=== PATIENT | male | born 1970 | race Caucasian/White ===

== ENCOUNTER 2016-07-06 08:54 | Emergency (ER) | payer OTHER ==
[2016-07-06] MEDS ORDERED: ASPIRIN PO STA (09:06)
--- NOTE | 2016-07-06 09:12 | EKG Report ---
Test Performed on : 07/06/2016 08:56:28 AM Test Reason : CHEST PAIN Blood Pressure : / mmHG Vent. Rate : 072 BPM Atrial Rate : 072 BPM P-R Int : 158 ms QRS Dur : 102 ms QT Int : 378 ms P-R-T Axes : 027 021 029 degrees QTc Int : 413 ms Normal sinus rhythm. Incomplete right bundle branch block Possible Anterior infarct , age undetermined Abnormal ECG No previous ECGs available Unconfirmed Result
[2016-07-06 09:28] LABS: MANUAL DIFF NEEDED? NO
[2016-07-06 09:37] LABS: BASO% 0.4 % (0.0-0.8); EOS# 0.28 X1000 (0.0-0.7); HEMATOCRIT 47.3 % (42.0-52.0); HEMOGLOBIN 15.7 g/dL (14.0-18.0); IMM GRAN# 0.02 X1000 (0.0-0.04); IMM GRAN% 0.2 % (0.0-0.5); LYMPH# 2.28 X1000 (1.2-3.4); LYMPH% 24.1 % (20.5-51.1); MCH 27.4 PG (27-31); MCHC 33.2 g/dL (33-37); MCV 82.4 FL (81-99); MONO% 7.4 % (1.7-9.3); MPV 9.1 FL (7.4-10.4); NEUT% 64.9 % (42.2-75.2); PLT 278 X1000 (130-400); RBC 5.74 XMIL (4.7-6.1)
[2016-07-06] MEDS ORDERED: LOPRESSOR IV ONE (09:42)
--- NOTE | 2016-07-06 09:49 | PROVIDER DOCUMENTATION ---
Addendum entered and electronically signed by Tenisha Herbert Scribe 07/06/16 13:02 : Departure - Departure Time of Disposition Order: 13:02 DIAGNOSIS: Elevated blood pressure reading, Atypical chest pain Disposition: HOME 01 Certified Medical Emergency: Emergent Condition: Stable Additional Instructions: Follow up with PCP and Cardiology JUNIOR for further management. Return to ER if your chest pain worsen. Prescriptions: Amlodipine Besylate [Norvasc] 5 mg PO DAILY #30 tablet Referrals: Abner Dixon MD [STAFF PHYSICIAN] - Lavell Rodriguez MD [Primary Care Provider] - Addendum entered and electronically signed by Tenisha Herbert Scribe 07/06/16 12:45 : Progress - PLAN OF CARE/RESULTS Progress/Plan/Lab Results: Laboratory Tests 07/06/16 07/06/16 07/06/16 09:17 09:17 09:17 WBC RBC Hgb Hct MCV MCH MCHC RDW Std Deviation Plt Count MPV Immature Gran % (Auto) Neut % (Auto) Lymph % (Auto) Glades % (Auto) Eos % (Auto) Baso % (Auto) Immature Gran # (Auto) Neut # (Auto) Lymph # (Auto) Glades # (Auto) Eos # (Auto) Baso # (Auto) PT INR APTT (Factor Assay) D-Dimer Sodium 137 Potassium 4.3 Chloride 100 Carbon Dioxide 25 Anion Gap 12 BUN 15 Creatinine 1.0 Estimated GFR/1.73 m2 > 60 BUN/Creatinine Ratio 15 Glucose 119 H Calculated Osmolality 276 Calcium 9.3 Magnesium 2.5 Total Bilirubin 0.30 AST 25 ALT 35 Alkaline Phosphatase 58 Creatine Kinase 193 Troponin T < 0.010 Tzd-Z-Stveuejomih Pept 27 Total Protein 7.4 Albumin 4.2 Globulin 3.0 Albumin/Globulin Ratio 1.0 Lipase 07/06/16 07/06/16 07/06/16 09:17 09:17 09:17 WBC 9.47 RBC 5.74 Hgb 15.7 Hct 47.3 MCV 82.4 MCH 27.4 MCHC 33.2 RDW Std Deviation 13.4 Plt Count 278 MPV 9.1 Immature Gran % (Auto) 0.2 Neut % (Auto) 64.9 Lymph % (Auto) 24.1 Glades % (Auto) 7.4 Eos % (Auto) 3.0 Baso % (Auto) 0.4 Immature Gran # (Auto) 0.02 Neut # (Auto) 6.15 Lymph # (Auto) 2.28 Glades # (Auto) 0.70 H Eos # (Auto) 0.28 Baso # (Auto) 0.04 PT 12.8 INR 0.93 APTT (Factor Assay) 30.3 D-Dimer < 0.22 L Sodium Potassium Chloride Carbon Dioxide Anion Gap BUN Creatinine Estimated GFR/1.73 m2 BUN/Creatinine Ratio Glucose Calculated Osmolality Calcium Magnesium Total Bilirubin AST ALT Alkaline Phosphatase Creatine Kinase Troponin T Xay-B-Ggglhcdglmq Pept Total Protein Albumin Globulin Albumin/Globulin Ratio Lipase 42 07/06/16 07/06/16 11:15 11:15 WBC RBC Hgb Hct MCV MCH MCHC RDW Std Deviation Plt Count MPV Immature Gran % (Auto) Neut % (Auto) Lymph % (Auto) Glades % (Auto) Eos % (Auto) Baso % (Auto) Immature Gran # (Auto) Neut # (Auto) Lymph # (Auto) Glades # (Auto) Eos # (Auto) Baso # (Auto) PT INR APTT (Factor Assay) D-Dimer Sodium Potassium Chloride Carbon Dioxide Anion Gap BUN Creatinine Estimated GFR/1.73 m2 BUN/Creatinine Ratio Glucose Calculated Osmolality Calcium Magnesium Total Bilirubin AST ALT Alkaline Phosphatase Creatine Kinase 174 Troponin T < 0.010 Nuw-R-Smllskagidt Pept Total Protein Albumin Globulin Albumin/Globulin Ratio Lipase Orders Category Date Time Status Cardiac Monitoring DIRECTED Care 07/06/16 09:07 Active Oxygen Therapy- ED Nursing DIRECTED Care 07/06/16 09:07 Active Saline Loc NOW Care 07/06/16 09:07 Active CHEST-2 VIEWS [RAD] Stat Exams 07/06/16 09:[address] THORAX W/CONTRAST [CT] Stat Exams 07/06/16 12:10 Taken US GB < RUQ (LIMITED) [US] Stat Exams 07/06/16 09:42 Completed CBC WITH ELECTRONIC DIFF [HEME] Stat Lab 07/06/16 09:17 Completed CK PROFILE [SP CHEM] Stat Lab 07/06/16 09:17 Completed CK PROFILE [SP CHEM] Stat Lab 07/06/16 11:15 Completed COMPREHENSIVE METABOLIC PANEL [CHEM] Stat Lab 07/06/16 09:17 Completed D-DIMER PL [COAG] Stat Lab 07/06/16 09:17 Completed LIPASE [CHEM] Stat Lab 07/06/16 09:17 Completed MAGNESIUM [CHEM] Stat Lab 07/06/16 09:17 Completed PRO B-NATRIURETIC PEPTIDE Stat Lab 07/06/16 09:[address]IME WITH INR PL [COAG] Stat Lab 07/06/16 09:[address] [COAG] Stat Lab 07/06/16 09:17 Completed TROPONIN T Stat Lab 07/06/16 09:17 Completed TROPONIN T Stat Lab 07/06/16 11:15 Completed Aspirin Med 07/06/16 09:06 Discontinued 325 mg PO STAT STA Lido/Salcedo Alk/Al&mg Hydrox [G.i. Cocktail] Med 07/06/16 11:09 Discontinued 30 ml PO NOW ONE Metoprolol [Lopressor] Med 07/06/16 09:42 Discontinued 5 mg IV NOW ONE EKG [EKG] Stat Ther 07/06/16 09:07 Draft Vital Signs - 24 hr 07/06/16 07/06/16 08:58 10:45 Pulse Rate 79 75 Respiratory 15 20 Rate Blood Pressure 164/111 130/86 O2 Sat by Pulse 97 Oximetry - XRAY 1 XRAY: Bilateral XRAY Study: Chest Impression: Abnormal (f/u w ct chest if new, enlarging or no prev) XRAY Interpretation: possible 19 mm nodule R base, rec correl w any outside cxr - CT/MRI 1 CT Study: Thorax Impression: Normal - ULTRASOUND (By Radiology) 1 US Study: Gallbladder, other (RUQ) Impression: Abnormal US Results: fatty liver, poss sludge, no stones, limited by body habitus & recent meal Original Note: HPI-Chest Pain - General Source: patient - History of Present Illness-CP Location: reports: substernal, epigastric Chest Pain Radiation: reports: no radiation Quality of Pain: reports: tightness Severity in ED: mild Onset/Duration: other (2 weeks ago) Timing: still present, intermittent Context/Activities at Onset: reports: light activity Modifying Factors: improves with: nothing Associated Symptoms: reports: denies symptoms Nitro Today/Relief: no nitro taken today Aspirin Treatment Today: no aspirin today Prior Chest Pain/Cardiac Workup: reports: no prior chest pain, no prior cardiac workup Similar Symptoms Previously?: Yes Recently Seen Here or By Another Healthcare Provider: No <Tenisha Herbert - Last Filed: 07/06/16 11:58> <Wolf Givensiron X - Last Filed: 07/06/16 12:08> - General Chief Complaint: Chest Pain Stated Complaint: CHEST PAIN Time Seen by Provider: 07/06/16 08:57 Allergies/Adverse Reactions: Patient Allergies Allergy/AdvReac Type Severity Reaction Status Date / Time meperidine HCl * Allergy Unknown Verified 07/06/16 09:02 [From Mepergan] promethazine HCl * Allergy Unknown Verified 07/06/16 09:02 [From Mepergan] Home Medications: Home Medication List Medication Instructions Recorded Confirmed Last Taken Type Amlodipine Besylate [Norvasc] 5 mg PO DAILY #30 tablet 07/06/16 Unknown Rx - History of Present Illness-CP Nature of Presenting Problem: Pt is 45 y/o M presents to the ED with chest pain. Pt states the pain is in the substernal and epigastric region. Pt states pain is intermittent. Pt states trying OTC med with no relief. Pt denies F and cough. (Tenisha Herbert) Review of Systems - Adult - REVIEW OF SYSTEMS - ADULT Constitutional: denies: chills, fever Eyes: denies: blurred vision, double vision Ears, Nose, Mouth & Throat: denies: ear pain, nose pain, throat pain Cardiovascular: reports: chest pain. denies: heart murmur, irregular heart rate Respiratory: denies: cough, shortness of breath, wheezing Gastrointestinal: denies: abdominal pain, diarrhea, nausea, vomiting Genitourinary: denies: dysuria, hematuria Musculoskeletal: denies: bone pain, joint pain, neck pain Integumentary: denies: hives, itching Neurological: denies: dizziness/vertigo, headache/migraines Psychiatric: reports: no symptoms reported Endocrine: reports: no symptoms reported Hematologic/Lymphatic: reports: no symptoms reported Allergic/Immunologic: reports: no symptoms reported All Other Systems: Reviewed and Negative <Tenisha Herbert - Last Filed: 07/06/16 11:58> Past History - Adult - PAST MEDICAL HISTORY-ADULT Review of Records: reports: Nursing Assessment Review, Medications Reviewed, Social history reviewed & non-contributory. Major Childhood Illnesses: reports: denies history Cardiovascular: reports: denies history Respiratory: reports: denies history Gastrointestinal: reports: denies history Obstetrical/Gynecological: reports: denies history Genitourinary: reports: denies history Musculoskeletal: reports: denies history Neurological: reports: denies history Endocrine/Immune: reports: denies history Other Conditions: reports: denies history - PRIOR SURGERIES/PROCEDURES Surgical/Procedure History: reports: orthopedic (extremity) (R ankle ) - IMMUNIZATION STATUS Childhood Immunizations: See Nurse Assessment Flu Vaccine: See Nurse Assessment - FAMILY HISTORY Family History: reviewed, not pertinent - SOCIAL HISTORY Smoking: quit less than 1 year, cigarettes Provider spent 3-5 mins advising pt. on dangers of tobacco.: Discussed manners to quit use, and f/u contacts for add'l counseling. Substance Use: alcohol Alcohol Use Frequency: occasionally Number of drinks per typical drinking period:: 2 drinks Living Situation: family <Tenisha Herbert - Last Filed: 07/06/16 11:58> Physical Exam-General - PHYSICAL EXAM-ADULT Initial Vital Signs Reviewed: Yes - CONSTITUTIONAL General Appearance: appears well, alert, no apparent distress - EYES Eyes: PERRL/EOMI, pink conjunctivae, fundi clear, no AV nicking - HEAD, EARS, NOSE, MOUTH & THROAT HENMT: normocephalic/atraumatic, moist mucous membranes, normal ENT inspection, TMs normal, pharynx normal - NECK Neck: non-tender, full range of motion, supple, normal inspection - RESPIRATORY Respiratory: chest non-tender, lungs clear, normal breath sounds, no pleuratic chest pain, no respiratory distress, no accessory muscle use - CARDIOVASCULAR Cardiovascular: normal peripheral pulses, regular rate, rhythm, no edema, no gallop, no JVD, no murmur - GASTROINTESTINAL (ABDOMEN) Abdominal Exam: normal bowel sounds, non tender, soft, no organomegaly, no pulsatile mass - LYMPHATIC Lymphatic: no adenopathy - MUSCULOSKELETAL Back Exam: normal inspection, no CVA tenderness, no vertebral tenderness Extremity: normal range of motion, non-tender, normal gait, normal inspection, no pedal edema, no calf tenderness, normal capillary refill, pelvis stable - SKIN Integumentary: normal color, normal turgor, warm/dry - NEUROLOGIC 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-XII nml as tested, grossly normal, no motor/sensory deficits - PSYCHIATRIC Psych/Mental Status: normal mood/affect, normal thought content, normal thought process, oriented x 3 <Keon,Tenisha - Last Filed: 07/06/16 11:58> Progress - EKG 1 Time of EKG reading by physician:: 08:56 EKG Read and Signed by:: Dimitri Givens EKG Interpretation (*Must complete 3 of following elements*): Abnormal Rate: 72 Rhythm: normal sinus rhythm Comments: incomplete RBBB; possible anterior infarct, age undetermined <Tenisha Herbert - Last Filed: 07/06/16 11:58> - REASSESSMENT Reassessment #1 Time Reassessed: 12:04 Status: improving (Lengthy discussion with pt and . Offered admission, but pt and declined. Wants to f/u with PCP adn Cardiology as an out patient. Pt reports he feels much better after BP normalized with IV lopressor. Pt wants BP meds prescription and f/u with PCP and Cardiology.) <Dimitri Givens - Last Filed: 07/06/16 12:08> - PLAN OF CARE/RESULTS Progress/Plan/Lab Results: Laboratory Tests 07/06/16 09:17 WBC 9.47 RBC 5.74 Hgb 15.7 Hct 47.3 MCV 82.4 MCH 27.4 MCHC 33.2 RDW Std Deviation 13.4 Plt Count 278 MPV 9.1 Immature Gran % (Auto) 0.2 Neut % (Auto) 64.9 Lymph % (Auto) 24.1 Glades % (Auto) 7.4 Eos % (Auto) 3.0 Baso % (Auto) 0.4 Immature Gran # (Auto) 0.02 Neut # (Auto) 6.15 Lymph # (Auto) 2.28 Glades # (Auto) 0.70 H Eos # (Auto) 0.28 Baso # (Auto) 0.04 Orders Category Date Time Status Cardiac Monitoring DIRECTED Care 07/06/16 09:07 Active Oxygen Therapy- ED Nursing DIRECTED Care 07/06/16 09:07 Active Saline Loc NOW Care 07/06/16 09:07 Active CHEST-2 VIEWS [RAD] Stat Exams 07/06/16 09:07 Taken US GB < RUQ (LIMITED) [US] Stat Exams 07/06/16 09:42 Ordered CBC WITH ELECTRONIC DIFF [HEME] Stat Lab 07/06/16 09:17 Completed CK PROFILE [SP CHEM] Stat Lab 07/06/16 09:17 Received COMPREHENSIVE METABOLIC PANEL [CHEM] Stat Lab 07/06/16 09:17 Received D-DIMER PL [COAG] Stat Lab 07/06/16 09:17 Received LIPASE [CHEM] Stat Lab 07/06/16 09:42 Ordered MAGNESIUM [CHEM] Stat Lab 07/06/16 09:17 Received PRO B-NATRIURETIC PEPTIDE Stat Lab 07/06/16 09:[address]IME WITH INR PL [COAG] Stat Lab 07/06/16 09:[address] [COAG] Stat Lab 07/06/16 09:17 Received TROPONIN T Stat Lab 07/06/16 09:17 Received Aspirin Med 07/06/16 09:06 Discontinued 325 mg PO STAT STA Metoprolol [Lopressor] Med 07/06/16 09:42 Discontinued 5 mg IV NOW ONE EKG [EKG] Stat Ther 07/06/16 09:07 Draft Vital Signs - 24 hr 07/06/16 08:58 Pulse Rate 79 Respiratory 15 Rate Blood Pressure 164/111 O2 Sat by Pulse 97 Oximetry Laboratory Tests 07/06/16 07/06/16 07/06/16 09:17 09:17 09:17 WBC RBC Hgb Hct MCV MCH MCHC RDW Std Deviation Plt Count MPV Immature Gran % (Auto) Neut % (Auto) Lymph % (Auto) Glades % (Auto) Eos % (Auto) Baso % (Auto) Immature Gran # (Auto) Neut # (Auto) Lymph # (Auto) Glades # (Auto) Eos # (Auto) Baso # (Auto) PT INR APTT (Factor Assay) D-Dimer Sodium 137 Potassium 4.3 Chloride 100 Carbon Dioxide 25 Anion Gap 12 BUN 15 Creatinine 1.0 Estimated GFR/1.73 m2 > 60 BUN/Creatinine Ratio 15 Glucose 119 H Calculated Osmolality 276 Calcium 9.3 Magnesium 2.5 Total Bilirubin 0.30 AST 25 ALT 35 Alkaline Phosphatase 58 Creatine Kinase 193 Troponin T < 0.010 Tmi-O-Amwphhstzwv Pept 27 Total Protein 7.4 Albumin 4.2 Globulin 3.0 Albumin/Globulin Ratio 1.0 Lipase 07/06/16 07/06/16 07/06/16 09:17 09:17 09:17 WBC 9.47 RBC 5.74 Hgb 15.7 Hct 47.3 MCV 82.4 MCH 27.4 MCHC 33.2 RDW Std Deviation 13.4 Plt Count 278 MPV 9.1 Immature Gran % (Auto) 0.2 Neut % (Auto) 64.9 Lymph % (Auto) 24.1 Glades % (Auto) 7.4 Eos % (Auto) 3.0 Baso % (Auto) 0.4 Immature Gran # (Auto) 0.02 Neut # (Auto) 6.15 Lymph # (Auto) 2.28 Glades # (Auto) 0.70 H Eos # (Auto) 0.28 Baso # (Auto) 0.04 PT 12.8 INR 0.93 APTT (Factor Assay) 30.3 D-Dimer < 0.22 L Sodium Potassium Chloride Carbon Dioxide Anion Gap BUN Creatinine Estimated GFR/1.73 m2 BUN/Creatinine Ratio Glucose Calculated Osmolality Calcium Magnesium Total Bilirubin AST ALT Alkaline Phosphatase Creatine Kinase Troponin T Gvp-J-Ncottjqcftq Pept Total Protein Albumin Globulin Albumin/Globulin Ratio Lipase 42 07/06/16 07/06/16 11:15 11:15 WBC RBC Hgb Hct MCV MCH MCHC RDW Std Deviation Plt Count MPV Immature Gran % (Auto) Neut % (Auto) Lymph % (Auto) Glades % (Auto) Eos % (Auto) Baso % (Auto) Immature Gran # (Auto) Neut # (Auto) Lymph # (Auto) Glades # (Auto) Eos # (Auto) Baso # (Auto) PT INR APTT (Factor Assay) D-Dimer Sodium Potassium Chloride Carbon Dioxide Anion Gap BUN Creatinine Estimated GFR/1.73 m2 BUN/Creatinine Ratio Glucose Calculated Osmolality Calcium Magnesium Total Bilirubin AST ALT Alkaline Phosphatase Creatine Kinase 174 Troponin T < 0.010 Kfc-X-Ugdjmmraizi Pept Total Protein Albumin Globulin Albumin/Globulin Ratio Lipase (Tenisha Herbert) Departure <Tenisha Herbert - Last Filed: 07/06/16 11:58> - Departure Time of Disposition Order: 12:05 Certified Medical Emergency: Emergent <Dimitri Givens X - Last Filed: 07/06/16 12:08> - Departure DIAGNOSIS: Elevated blood pressure reading, Atypical chest pain Disposition: HOME 01 Condition: Stable Additional Instructions: Follow up with PCP and Cardiology JUNIOR for further management. Return to ER if your chest pain worsen. Prescriptions: Amlodipine Besylate [Norvasc] 5 mg PO DAILY #30 tablet Referrals: Lavell Rodriguez MD [Primary Care Provider] - Abner Dixon MD [STAFF PHYSICIAN] - Attestation - Scribe Verification/Attestation Scribe:: Tenisha Herbert Acting as Scribe for:: Dimitri Givens Scribe documention review:: This chart was documented by a scribe and accurately reflects the service the provider performed and the decisions made by the provider. <Tenisha Herbert - Last Filed: 07/06/16 11:58> Physician Attestation - Physician Attestation I, the provider, attest to the following statement:: Dimitri Givens Physician documentation Attestation:: This documentation recorded by the scribe accurately reflects the service I personally performed and the decisions made by me. <Dimitri Givens - Last Filed: 07/06/16 12:08>
[2016-07-06 09:52] LABS: INR 0.93 (0.86-1.15); PROTIME 12.8 Seconds (12.1-15.5)
[2016-07-06 09:53] LABS: PTT PL 30.3 Seconds (22.6-43.9)
[2016-07-06 09:57] LABS: AGAP 12; ALBUMIN 4.2 g/dL (3.5-5.0); ALKALINE PHOSPHATASE 58 U/L (32-122); BUN 15 mg/dL (8-22); CALCIUM 9.3 mg/dL (8.8-10.2); CHLORIDE 100 mmol/L (98-107); CK PROFILE 193 U/L (24-204); COSMO 276; GOT 25 U/L (10-34); GPT 35 U/L (10-44); MAGNESIUM 2.5 mg/dL (1.5-2.7); POTASSIUM 4.3 mmol/L (3.5-5.1); SODIUM 137 mmol/L (136-145); TCO2 25 mmol/L (25-35); TOTAL PROTEIN 7.4 g/dL (6.3-8.3)
--- NOTE | 2016-07-06 10:54 | Diag Imaging Result Document ---
PROCEDURE NAME: CHEST-2 VIEWS - 07/06/2016 CHEST, TWO VIEWS: INDICATION: Chest pain. COMPARISON: No comparison studies. FINDINGS: The heart size is within normal limits. The pulmonary vasculature is not congested. No infiltrates or effusions are identified. There is a possible nodule measuring approximately 2 cm, right lung base. Correlation with any previous radiographs is suggested to confirm stability. If none are available, consider CT of the thorax. There are no acute infiltrates, effusions, or pneumothorax. IMPRESSION: Potential nodule, right lung base. Recommend correlation with any previous outside radiographs to assess stability. If new, enlarging, or no previous studies, further evaluation with CT scan of the chest is recommended.
[2016-07-06] MEDS ORDERED: G.I. COCKTAIL PO ONE (11:09)
--- NOTE | 2016-07-06 11:12 | Diag Imaging Result Document ---
PROCEDURE NAME: US GB < RUQ (LIMITED) - 07/06/2016 GALLBLADDER PORTABLE ULTRASOUND: INDICATION: Epigastric pain. FINDINGS: The liver appears hypoechoic, suggesting fatty liver infiltration. Visualization is limited by patient's large body habitus and recent breakfast. There may be some gallbladder sludge. No cholelithiasis is appreciated. The patient was not tender over the gallbladder, as per the technologist. There is no gallbladder wall thickening or pericholecystic fluid. The common bile duct measures 5 mm. The right kidney appears normal. No hydronephrosis. The pancreas is obscured by bowel gas artifact. IMPRESSION: 1. Limited visualization due to body habitus and recent meal. Possible small amount of gallbladder sludge. 2. No cholelithiasis. 3. Hepatic steatosis.
--- NOTE | 2016-07-06 13:09 | Diag Imaging Result Document ---
PROCEDURE NAME: CT THORAX W/CONTRAST - 07/06/2016 CT CHEST WITH INTRAVENOUS CONTRAST: COMPARISON: Chest x-ray earlier 07/06/2016. FINDINGS: There is a large benign centrally calcified granuloma in the right middle lobe. This measures about 1.6 cm. No infiltrates. No adenopathy. Heart and great vessels are normal. Upper abdominal images are unremarkable. Bony structures are intact. IMPRESSION: Calcified granuloma in the right middle lobe. No acute disease or suspicious findings seen.
[2016-07-06] MEDS ORDERED: CATAPRES PO ONE (13:50)
[2016-07-06 14:28] VITALS: BP 144/83
== END 2016-07-06 14:27 | disposition home or self-care (01) ==
LOC: P.ED 08:54
DX: R07.89 Other chest pain (principal); R03.0 Elevated blood-pressure reading, without diagnosis of hypertension; R94.31 Abnormal electrocardiogram [ECG] [EKG]; R10.13 Epigastric pain; Z87.891 Personal history of nicotine dependence
CPT/HCPCS: 36415; 71020; 71260; 76705; 80053; 82550; 83690; 83735; 83880; 84484; 85025; 85379; 85610; 85730; 93005; 96374; Q9967